=== PATIENT | male | born 1945 | race Caucasian/White ===

== ENCOUNTER → 2021-01-02 | Outpatient (CLI) | payer MEDICARE, BC ==
--- NOTE | 2021-01-02 13:15 | REP ---
INDICATION: AAA COMPARISON: None. TECHNIQUE: Multiple ultrasonographic images of the abdominal aorta were obtained from the level of the celiac access to the aortoiliac bifurcation and the longitudinal and transverse scan planes along with color Doppler imaging. FINDINGS: The maximal AP dimension of the abdominal aorta as measured in the longitudinal scan plane is 3.8 cm. This is estimated as the technologist performing examination could not identify the posterior aortic wall at that mid abdominal level due to calcified plaque formation. This has a length of 9.6 cm. There is no evidence of common iliac arterial ectasia. IMPRESSION: The exam is limited. Definite aortic measurements could not be obtained as described above. Although I feel I can identify a good portion of the posterior aortic wall the performing technologist could not, as such, CT a of the abdominal aorta should be considered. Sign report. <Electronically signed by Karan Hay > 01/02/21 [id number]
== END ==
LOC: M RAD 08:41
PROVIDERS: ATTEND Nurse Practitioner Adult Health
DX: I10 Essential (primary) hypertension (principal); Z13.6 Encounter for screening for cardiovascular disorders

== ENCOUNTER → 2021-04-14 | Outpatient (CLI) | payer MEDICARE, BC | LOC: M LABSMTC 09:17 | PROVIDERS: ATTEND Internal Medicine Gastroenterology | DX: Z20.828 Contact with and (suspected) exposure to other viral communicable diseases (principal); Z11.59 Encounter for screening for other viral diseases ==